=== PATIENT | male | born 1970 | race Caucasian/White ===

== ENCOUNTER 2019-07-27 06:40 | Emergency (ER) | payer BC ==
[~2019-07-27] VITALS: Ht 172.7 cm; Wt 64.9 kg
--- NOTE | 2019-07-27 06:44 | NUR ---
PT BIBSELF C/O RASH/ITCHING THROUGHOUT FACE AND BODY X 10DAYS, PT IS AAOX4, NOT IN RESPIRATORY DISTRESS, HOOKED TO MONITOR, KEPT RESTED AND COMFORTABLE, WILL CONTINUE TO MONITOR.
--- NOTE | 2019-07-27 07:08 | NUR ---
SEEN AND EXAMINED BY .
[2019-07-27] MEDS ORDERED: predniSONE 20 MG TABLET ONE (07:18)
[2019-07-27] MEDS ORDERED: IPRATROPIUM NEB FS 0.5 MG/2.5 ML AMPUL.NEB ONE (07:19)
[2019-07-27] MEDS ORDERED: ALBUTEROL FS 2.5 MG/3 ML VIAL.NEB ONE (07:19)
--- NOTE | 2019-07-27 07:20 | NUR ---
ER PHLEB AT BEDSIDE FOR BLOOD DRAW.
--- NOTE | 2019-07-27 07:20 | NUR ---
RT AT BEDSIDE FOR BREATHING TREATMENT.
[2019-07-27 07:28] LABS: BASOPHILS # (AUTO) 0.2 /CMM (0.0-0.2); BASOPHILS % (AUTO) 2.7 % (0.0-2.0); EOSINOPHILS % (AUTO) 13.1 % (0.0-6.0); HEMATOCRIT 44 % (39-51); HEMOGLOBIN 14.7 g/dL (13.5-17.5); LYMPHOCYTES # (AUTO) 1.2 /CMM (0.8-4.8); LYMPHOCYTES % (AUTO) 15.8 % (20.0-44.0); MEAN CORPUSCULAR HGB CONC 34 g/dl (31.0-36.0); MEAN CORPUSCULAR VOLUME 86 fL (80-96); MONOCYTES # (AUTO) 0.7 /CMM (0.1-1.30); MONOCYTES % (AUTO) 9.8 % (2.0-12.0); NEUTROPHILS # (AUTO) 4.4 /CMM (1.8-8.9); NEUTROPHILS % (AUTO) 58.6 % (43.0-81.0); PLATELET COUNT (AUTO) 244 /CMM (150-450); RED BLOOD CELL COUNT(AUTO) 5.06 MIL/uL (4.5-6.0); WHITE BLOOD COUNT (AUTO) 7.5 K/uL (4.3-11.0)
[2019-07-27] MEDS ORDERED: predniSONE 20 MG TABLET PO ONE (07:30)
[2019-07-27] MEDS ORDERED: ALBUTEROL FS 2.5 MG/3 ML VIAL.NEB NEB ONE (07:30)
[2019-07-27] MEDS ORDERED: IPRATROPIUM NEB FS 0.5 MG/2.5 ML AMPUL.NEB NEB ONE (07:30)
[2019-07-27 08:00] LABS: CALCIUM, SERUM 9.4 mg/dL (8.5-10.1); CREATININE 0.9 mg/dL (0.6-1.3); POTASSIUM 4.1 mmol/L (3.5-5.1)
--- NOTE | 2019-07-27 08:39 | NUR ---
Patient discharged to home in stable condition. Written and verbal after care instructions given. Patient verbalizes understanding of instruction.
[2019-07-27 08:46] VITALS: BP 122/72
[2019-07-30 21:06] LABS: *ANA ANTI-CENTROMERE B AB <0.2 AI (0.0-0.9); *ANA ANTI-DNA(DS) AB, QN 1 IU/mL (0-9); *ANA ANTI-JO-1 <0.2 AI (0.0-0.9); *ANA ANTICHROMATIN ANTIBODY <0.2 AI (0.0-0.9); *ANA RNP ANTIBODIES <0.2 AI (0.0-0.9); *ANA SJOGREN'S ANTI-SS-A <0.2 AI (0.0-0.9); *ANA SJOGREN'S ANTI-SS-B <0.2 AI (0.0-0.9); *ANAANTI-SCLERODERMA-70 AB <0.2 AI (0.0-0.9); *ANASMITH AB <0.2 AI (0.0-0.9)
== END 2019-07-27 08:50 | disposition home or self-care (01) ==
LOC: ER 06:43
DX: H61.003 Unspecified perichondritis of external ear, bilateral (principal); R21 Rash and other nonspecific skin eruption; Z91.048 Other nonmedicinal substance allergy status; Z60.2 Problems related to living alone
CPT/HCPCS: 36415; 80048; 85025; 85652; 86225; 86235 ×8; 94640; 99283; J7512

== ENCOUNTER 2020-09-30 07:57 | Inpatient (IN) | payer BC, OTHER ==
[~2020-09-30] VITALS: Ht 170.2 cm; Wt 56.7 kg
[2020-09-30] MEDS: ALBUTEROL FS 2.5 MG/0.5 ML VIAL.NEB NEB SCH ×3 (00:33→19:58)
[2020-09-30] MEDS: IPRATROPIUM NEB FS 0.5 MG/2.5 ML AMPUL.NEB NEB SCH ×3 (00:33→19:58)
[2020-09-30] MEDS: ACETYLCYSTEINE 10% SOLN 400 MG/4 ML VIAL NEB SCH ×2 (00:34→14:27)
--- NOTE | 2020-09-30 08:00 | NUR ---
pt self presents to er ambulatory w/ steady gait c/o worsening sob and hypoxia for the last 24 hours. 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 pt gowned and placed on monitor. awaiting md martinez.
--- NOTE | 2020-09-30 08:04 | NUR ---
dr guerra at bedside for eval.
--- NOTE | 2020-09-30 08:10 | NUR ---
iv line started blood drawn and sent to lab.
[2020-09-30 08:27] LABS: BASOPHILS # (AUTO) 0.1 /CMM (0.0-0.2); EOSINOPHILS % (AUTO) 10.1 % (0.0-6.0); HEMATOCRIT 49 % (39-51); HEMOGLOBIN 16.7 g/dL (13.5-17.5); LYMPHOCYTES # (AUTO) 0.9 /CMM (0.8-4.8); LYMPHOCYTES % (AUTO) 6.6 % (20.0-44.0); MEAN CORPUSCULAR HGB CONC 34 g/dl (31.0-36.0); MEAN CORPUSCULAR VOLUME 89 fL (80-96); MONOCYTES # (AUTO) 0.4 /CMM (0.1-1.30); MONOCYTES % (AUTO) 3.3 % (2.0-12.0); NEUTROPHILS # (AUTO) 10.3 /CMM (1.8-8.9); PLATELET COUNT (AUTO) 343 /CMM (150-450); RED BLOOD CELL COUNT(AUTO) 5.56 MIL/uL (4.5-6.0); WHITE BLOOD COUNT (AUTO) 13.1 K/uL (4.3-11.0)
[2020-09-30] MEDS ORDERED: IV NS 0.9% 1,000 ML BAG IV ONE (08:30)
[2020-09-30 08:34] LABS: ABG BASE EXCESS -1.5 mmol/L; ABG OXYGEN SATURATION 95.9 % (92.0-98.5); ABG PH 7.436 (7.350-7.450); ABG PO2 81.5 mmHg (75.0-100.0); AaDO2 93.6 mmHg; COHb 0.4 % (0.5-1.5); MetHb 0.4 % (0.0-1.5); O2Hb 95.1 % (94.0-97.0); SITE, ABG Right Radial; VENT MODE, BG 3L NC
--- NOTE | 2020-09-30 08:37 | NUR ---
radiology at bedside for chest xray.
[2020-09-30 08:43] LABS: CALCIUM, SERUM 9.7 mg/dL (8.5-10.1); CARBON DIOXIDE 28 mmol/L (21-32); CHLORIDE 101 mmol/L (98-107); GLUCOSE 134 mg/dL (74-106); POTASSIUM 4.1 mmol/L (3.5-5.1); SODIUM SERUM 139 mmol/L (136-145); UREA NITROGEN, BLOOD 15 mg/dL (7-18)
[2020-09-30] MEDS ORDERED: IPRA3AMP23 NEB (08:50)
[2020-09-30 08:57] LABS: ALANINE AMINOTRANSFERASE 39 U/L (12-78); ALBUMIN 3.9 g/dL (3.4-5.0); ALKALINE PHOSPHATASE 107 U/L (46-116); ASPARTATE AMINOTRANSFERASE 32 U/L (15-37); B-TYPE NATRIURETIC PEPTIDE 109 PG/ML (0-125); BILIRUBIN,DIRECT 0.2 mg/dL (0.0-0.2); BILIRUBIN,TOTAL 0.7 mg/dL (0.2-1.0); TOTAL PROTEIN, SERUM 7.9 g/dL (6.4-8.2)
--- NOTE | 2020-09-30 09:27 | NUR ---
CALLED ZAYDA [phone]. ON HIS [address] DOWN.
--- NOTE | 2020-09-30 09:47 | NUR ---
[facility] D[facility] LABORAT[facility] TECHNOLOGY TEACHER PAGED
--- NOTE | 2020-09-30 10:26 | NUR ---
pt to raediology for ct chest via [facility].
[2020-09-30] MEDS ORDERED: ALBUTEROL FS 2.5 MG/3 ML VIAL.NEB ONE ×2 (11:51→14:19)
[2020-09-30] MEDS ORDERED: IPRATROPIUM NEB FS 0.5 MG/2.5 ML AMPUL.NEB ONE ×3 (11:51→19:56)
[2020-09-30] MEDS ORDERED: ALBUTEROL FS 2.5 MG/3 ML VIAL.NEB NEB ONE (12:00)
[2020-09-30] MEDS ORDERED: IPRATROPIUM NEB FS 0.5 MG/2.5 ML AMPUL.NEB NEB ONE (12:00)
[2020-09-30] MEDS ORDERED: MAG HYDROX/AL HYDROX/SIMETH 30 ML UDC PO PRN (13:00)
[2020-09-30] MEDS ORDERED: MAGNESIUM HYDROXIDE 30 ML UDC PO PRN (13:00)
[2020-09-30] MEDS ORDERED: HYDROCODONE/APAP 5/325MG TABLET PO PRN (13:00)
[2020-09-30] MEDS ORDERED: ACETAMINOPHEN 325 MG TABLET PO PRN (13:00)
[2020-09-30] MEDS ORDERED: ONDANSETRON HCL/PF 4 MG/2 ML VIAL IVP PRN (13:00)
[2020-09-30] MEDS ORDERED: ALBUTEROL FS 2.5 MG/0.5 ML VIAL.NEB NEB PRN (13:00)
[2020-09-30] MEDS ORDERED: Z GUARD REMEDY 2 OZ OINT TP PRN (13:00)
[2020-09-30] MEDS ORDERED: IPRATROPIUM NEB FS 0.5 MG/2.5 ML AMPUL.NEB NEB PRN (13:00)
[2020-09-30] MEDS ORDERED: ZOLPIDEM TARTRATE 5 MG TABLET PO PRN (13:00)
[2020-09-30] MEDS ORDERED: ENOXAPARIN SODIUM 40 MG/0.4 ML DISP.SYRIN SQ ONE ×2 (13:52→13:59)
[2020-09-30] MEDS ORDERED: methylPREDNISolone SOD SUCC 40 MG/ML VIAL ONE ×2 (13:52→20:58)
[2020-09-30] MEDS: methylPREDNISolone SOD SUCC 40 MG/ML VIAL IV SCH ×2 (14:02→21:00)
[2020-09-30] MEDS: ENOXAPARIN SODIUM 40 MG/0.4 ML DISP.SYRIN SQ SCH (14:03)
[2020-09-30] MEDS ORDERED: AMPH10CA3 PO (17:10)
--- NOTE | 2020-09-30 19:21 | NUR ---
REC'D REPORT FROM TRIXIE OATES FOR STEPHENIE
--- NOTE | 2020-09-30 19:21 | NUR ---
report given to morris lala for abdiel.
[2020-09-30] MEDS: IV D5/ 0.9% NACL 1,000 ML IV PRN (19:43)
--- NOTE | 2020-09-30 19:44 | NUR ---
PT RESTING COMFORTABLY IN BED. VITAL SIGNS STABLE. NO ACUTE DISTRESS NOTED AT THIS TIME. CALL LIGHT WITHIN REACH. STILL ON MONITOR, WILL CONTINUE TO MONITOR
--- NOTE | 2020-09-30 19:50 | NUR ---
EDDIE FLAVORINGS COMPOUNDER AT BEDSIDE FOR EVALAUTION
[2020-09-30] MEDS ORDERED: ALBUTEROL FS 2.5 MG/0.5 ML VIAL.NEB ONE (19:56)
--- NOTE | 2020-09-30 19:58 | NUR ---
RT AT BEDSIDE FOR BREATHING TREATMENT
[2020-09-30] MEDS: VORICONAZOLE 200 MG TABLET PO SCH (21:02)
--- NOTE | 2020-09-30 21:02 | NUR ---
PT REFUSING SOLU-MEDROL. PT STATES "I ALREADY GOT A DOSE OF STEROIDS TODAY, THAT'S TOO MUCH FOR MY BODY" RISKS AND BENEFITS EXPLAINED TO PATIENT 3X, PT VERBALIZED UNDERSTANDING.
--- NOTE | 2020-10-01 00:04 | NUR ---
PT RESTING COMFORTABLY IN BED. EASILY AROUSABLE. VITAL SIGNS STABLE. NO ACUTE DISTRESS NOTED AT THIS TIME. WILL CONTINUE TO MONITOR
[2020-10-01] MEDS ORDERED: IPRATROPIUM NEB FS 0.5 MG/2.5 ML AMPUL.NEB ONE ×5 (00:27→20:02)
[2020-10-01] MEDS ORDERED: ALBUTEROL FS 2.5 MG/3 ML VIAL.NEB ONE ×2 (00:27→20:01)
[2020-10-01] MEDS: ALBUTEROL FS 2.5 MG/0.5 ML VIAL.NEB NEB SCH ×5 (03:29→20:04)
[2020-10-01] MEDS: IPRATROPIUM NEB FS 0.5 MG/2.5 ML AMPUL.NEB NEB SCH ×5 (03:29→20:04)
[2020-10-01] MEDS ORDERED: methylPREDNISolone SOD SUCC 40 MG/ML VIAL ONE ×2 (04:34→13:36)
[2020-10-01 04:54] LABS: BASOPHILS # (AUTO) 0.1 /CMM (0.0-0.2); BASOPHILS % (AUTO) 0.6 % (0.0-2.0); EOSINOPHILS % (AUTO) 1.4 % (0.0-6.0); HEMATOCRIT 43 % (39-51); HEMOGLOBIN 14.5 g/dL (13.5-17.5); LYMPHOCYTES % (AUTO) 8.2 % (20.0-44.0); MEAN CORPUSCULAR HGB CONC 34 g/dl (31.0-36.0); MEAN CORPUSCULAR VOLUME 88 fL (80-96); MONOCYTES # (AUTO) 1.1 /CMM (0.1-1.30); NEUTROPHILS # (AUTO) 9.5 /CMM (1.8-8.9); NEUTROPHILS % (AUTO) 80.8 % (43.0-81.0); PLATELET COUNT (AUTO) 277 /CMM (150-450); RED BLOOD CELL COUNT(AUTO) 4.87 MIL/uL (4.5-6.0); WHITE BLOOD COUNT (AUTO) 11.8 K/uL (4.3-11.0)
[2020-10-01] MEDS: methylPREDNISolone SOD SUCC 40 MG/ML VIAL IV SCH ×3 (05:00→21:00)
[2020-10-01 05:34] LABS: CALCIUM, SERUM 9.4 mg/dL (8.5-10.1); CREATININE 0.9 mg/dL (0.6-1.3); PHOSPHORUS 4.7 mg/dL (2.5-4.9); POTASSIUM 4.3 mmol/L (3.5-5.1)
[2020-10-01 05:36] LABS: THYROID STIMULATING HORMONE 1.264 uIU/mL (0.358-3.74)
--- NOTE | 2020-10-01 05:54 | NUR ---
PT SLEEPING COMFORTABLY IN BED, EASILY AROUSABLE. VSS. NO ACUTE DISTRESS NOTED AT THIS TIME. WILL CONTINUE TO MONITOR
[2020-10-01] MEDS ORDERED: ALBUTEROL FS 2.5 MG/0.5 ML VIAL.NEB ONE ×4 (07:14→20:01)
[2020-10-01] MEDS: ACETYLCYSTEINE 10% SOLN 400 MG/4 ML VIAL NEB SCH ×2 (07:22→14:37)
[2020-10-01] MEDS: PANTOPRAZOLE 40 MG TABLET.DR PO SCH (07:30)
--- NOTE | 2020-10-01 07:31 | NUR ---
REPORT GIVEN TO TRIXIE JAIN FOR STEPHENIE
[2020-10-01] MEDS ORDERED: PANTOPRAZOLE 40 MG TABLET.DR PO ONE (08:13)
[2020-10-01] MEDS ORDERED: ENOXAPARIN SODIUM 40 MG/0.4 ML DISP.SYRIN SQ ONE (08:13)
[2020-10-01] MEDS: VORICONAZOLE 200 MG TABLET PO SCH ×2 (08:37→21:03)
[2020-10-01] MEDS: ENOXAPARIN SODIUM 40 MG/0.4 ML DISP.SYRIN SQ SCH (09:00)
--- NOTE | 2020-10-01 09:15 | NUR ---
PT AAOX4, VSS. RR EVEN & UNLABORED. DENIES CP, SOB, DIZZINESS, N/V/D AT THIS TIME. WILL CONT TO MONITOR.
[2020-10-01] MEDS ORDERED: ALBUTEROL HALF STRENGTH 1.25 MG/3 ML VIAL.NEB NEB PRN (10:00)
--- NOTE | 2020-10-01 11:45 | NUR ---
PT ASLEEP, RR EVEN & UNLABORED. VSS. NAD NOTED AT THIS TIME. WILL CONT TO MONITOR.
--- NOTE | 2020-10-01 13:45 | NUR ---
MEDICATED PER MD ORDER, PT ANTONELLA WELL. PT SITTING UP & EATING LUNCH. NAD NOTED AT THIS TIME.
--- NOTE | 2020-10-01 14:40 | NUR ---
PT'S GETTING BREATHING TX, PT ANTONELLA WELL.
--- NOTE | 2020-10-01 16:58 | NUR ---
PT SITTING UP, RR EVEN & UNLABORED. DENIES CP, SOB, DIZZINESS, N/V, WEAKNESS AT THIS TIME. WILL CONT TO MONITOR.
--- NOTE | 2020-10-01 19:30 | NUR ---
REC'D REPORT FROM TRIXIE LOCKETT FOR STEPHENIE
[2020-10-01] MEDS: IV D5/ 0.9% NACL 1,000 ML IV PRN (20:09)
--- NOTE | 2020-10-01 20:30 | NUR ---
PT REQUESTING TO HOLD ON MAINTENANCE IV FLUIDS. PT STATES "I'VE BEEN DRINKING A LOT, I DON'T THINK I NEED THIS" RISKS AND BENEFITS EXPLAINED. PT VERBALIZED UNDERSTANDING. AWARE
--- NOTE | 2020-10-01 21:05 | NUR ---
PT REFUSING SOLU-MEDROL. RISKS AND BENEFITS EXPLAINED TO PATIENT 3X, PT VERBALIZED UNDERSTANDING.
--- NOTE | 2020-10-01 21:29 | NUR ---
EDDIE EXECUTIVE VP AT BEDSIDE FOR EVALUATION
[2020-10-02] MEDS: ALBUTEROL FS 2.5 MG/0.5 ML VIAL.NEB NEB SCH ×7 (00:26→23:19)
[2020-10-02] MEDS: ACETYLCYSTEINE 10% SOLN 400 MG/4 ML VIAL NEB SCH ×4 (00:26→23:19)
[2020-10-02] MEDS: IPRATROPIUM NEB FS 0.5 MG/2.5 ML AMPUL.NEB NEB SCH ×7 (00:26→23:19)
[2020-10-02] MEDS ORDERED: ALBUTEROL FS 2.5 MG/0.5 ML VIAL.NEB ONE ×3 (01:17→07:37)
[2020-10-02] MEDS ORDERED: IPRATROPIUM NEB FS 0.5 MG/2.5 ML AMPUL.NEB ONE ×3 (01:17→07:37)
--- NOTE | 2020-10-02 03:39 | NUR ---
PT RESTING COMFORTABLY IN BED. VITAL SIGNS STABLE. RESPIRATIONS EVEN AND UNLABORED. NO ACUTE DISTRESS NOTED AT THIS TIME. WILL CONTINUE TO MONITOR
[2020-10-02 04:10] LABS: BASOPHILS % (AUTO) 0.3 % (0.0-2.0); EOSINOPHILS % (AUTO) 0.7 % (0.0-6.0); HEMATOCRIT 45 % (39-51); LYMPHOCYTES # (AUTO) 0.8 /CMM (0.8-4.8); LYMPHOCYTES % (AUTO) 9.6 % (20.0-44.0); MEAN CORPUSCULAR HGB CONC 34 g/dl (31.0-36.0); MEAN CORPUSCULAR VOLUME 89 fL (80-96); MONOCYTES # (AUTO) 0.3 /CMM (0.1-1.30); MONOCYTES % (AUTO) 3.6 % (2.0-12.0); NEUTROPHILS # (AUTO) 7.3 /CMM (1.8-8.9); NEUTROPHILS % (AUTO) 85.8 % (43.0-81.0); PLATELET COUNT (AUTO) 329 /CMM (150-450); RED BLOOD CELL COUNT(AUTO) 4.98 MIL/uL (4.5-6.0); WHITE BLOOD COUNT (AUTO) 8.5 K/uL (4.3-11.0)
[2020-10-02 04:26] LABS: CALCIUM, SERUM 9.4 mg/dL (8.5-10.1); MAGNESIUM 2.2 mg/dL (1.8-2.4); PHOSPHORUS 4.2 mg/dL (2.5-4.9)
[2020-10-02] MEDS: methylPREDNISolone SOD SUCC 40 MG/ML VIAL IV SCH ×3 (05:00→21:02)
--- NOTE | 2020-10-02 05:10 | NUR ---
PT REFUSING SOLUMEDROL. RISKS AND BENEFITS EXPLAINED 3X, PT VERBALIZED UNDERSTANDING. AWARE
--- NOTE | 2020-10-02 07:21 | NUR ---
REPORT GIVEN TO TRIXIE JAIN FOR STEPHENIE
--- NOTE | 2020-10-02 08:08 | NUR ---
PATIENT A/OX4, RESTING AT THIS TIME.
[2020-10-02] MEDS ORDERED: PANTOPRAZOLE 40 MG TABLET.DR PO ONE (08:15)
[2020-10-02] MEDS: ENOXAPARIN SODIUM 40 MG/0.4 ML DISP.SYRIN SQ SCH (08:27)
[2020-10-02] MEDS: VORICONAZOLE 200 MG TABLET PO SCH ×2 (08:27→21:03)
[2020-10-02] MEDS: PANTOPRAZOLE 40 MG TABLET.DR PO SCH (08:27)
--- NOTE | 2020-10-02 09:28 | NUR ---
REPORT GIVEN TO ESTHELA MARCUM FOR STEPHENIE. PATIENT TRANSFERRED TO ROOM 304-1 VIA ACLS PROTOCOL. IN STABLE CONDITION. ON 3LPM VIA NC WITH SPO2 OF 98%.
--- NOTE | 2020-10-02 09:30 | NUR ---
RN NOTES BEDSIDE ENDORSEMENT DONE. PATIENT TRANSFERRED TO ROOM 304, ACCOMPANIED BY 2 ER NURSES.
[2020-10-02 09:49] VITALS: BP 104/69
[2020-10-02 16:00] VITALS: BP 96/59
--- NOTE | 2020-10-02 19:10 | NUR ---
RN NOTES ADMITTED THIS PATIENT TODAY FROM ER W/ CC OF SOB FROM HOME, DIAGNOSIS OF FIBROTIC LUNGS PER DR. PRIEST. PATIENT IS AWAKE AND VERBALLY RESPONSIVE; A/O X4, ABLE TO MAKE NEEDS KNOWN. BREATHING EVEN AND UNLABORED, ON O2 AT 2-3LPM VIA NC, NO RESPIRATORY DISTRESS. IV LINE INSERTED TODAY AT RIGHT WRIST #22, INTACT AND PATENT. PATIENT REQUESTED NOT TO HAVE IVF HE STATES THAT HE MOVES A LOT AND DRINKS FLUIDS. PATIENT IS AMBULATORY W/ STEADY GAIT, NO SKIN ISSUES NOTED. SAFETY PRECS IN PLACE: BED LOCKED AND ON LOWEST POSITION, SR UP X2, CALL LIGHT USE DEMONSTRATED TO PATIENT FOR STAFF ASSISTANCE. ENDORSED TO PARKING CASHIER RN FOR STEPHENIE.
--- NOTE | 2020-10-02 19:48 | NUR ---
PRODUCT MERCHANDISER OPENING NOTES PATIENT A/O X4; ABLE TO MAKE NEEDS KNOWN. ON O2 2LPML; TOLERATING WELL, DRY COUGHING NOTED. ON EXTERNAL CARDIAC MONITORING; READS SR AND HR AT 90'S. IV ON RIGHT WRIST #22; PATENT AND INTACT. SAFETY MEASURES IN PLACE: BED LOCKED IN LOWEST POSITION; SIDE RAILS UP X2; CALL LIGHT WITHIN EASY REACH. WILL CONTINUE TO MONITOR.
--- NOTE | 2020-10-02 21:30 | NUR ---
MUSIC LEADER NOTES - FLONASE PATIENT C/O DRY NOSE FROM OXYGEN AND REQUESTED SOMETHING TO PREVENT DRYNESS. NOTIFIED VANE CARRILLO AND ORDERED FLONASE NASAL SPRAY. ORDERS CARRIED OUT
[2020-10-03] MEDS: ALBUTEROL FS 2.5 MG/0.5 ML VIAL.NEB NEB SCH ×6 (03:13→23:42)
[2020-10-03] MEDS: IPRATROPIUM NEB FS 0.5 MG/2.5 ML AMPUL.NEB NEB SCH ×6 (03:13→23:42)
[2020-10-03 04:00] VITALS: BP 97/56
[2020-10-03] MEDS: methylPREDNISolone SOD SUCC 40 MG/ML VIAL IV SCH ×4 (05:00→21:40)
--- NOTE | 2020-10-03 06:33 | NUR ---
FISHER TROT LINE CLOSING NOTES PATIENT A/O X4; ABLE TO MAKE NEEDS KNOWN. ON O2 2LPM VIA NASAL CANNULA; TOLERATING WELL, COUGHING AND MUCUS NOTED. ON EXTERNAL CARDIAC MONITORING; READS SR AND HR AT 99. IV ON RIGHT WRIST #22; PATENT AND INTACT. SAFETY MEASURES IN PLACE: BED LOCKED IN LOWEST POSITION; SIDE RAILS UP X2; CALL LIGHT WITHIN EASY REACH. WILL CONTINUE TO MONITOR.
--- NOTE | 2020-10-03 07:05 | NUR ---
EDGE DYER OPENING NOTES RECEIVED PATIENT SITTING ON THE EDGE OF THE BED. A/O X4. NC ON 2 LPM. TELE READING SR 99. IV ACCESS ON R WRIST #20 G. SAFETY MEASURES MAINTAINED. BED IN LOWEST POSITION, BRAKES LOCKED. SIDE RAILS UP X2. CALL LIGHT WITHIN REACH. WILL CONTINUE PLAN OF CARE.
[2020-10-03] MEDS: PANTOPRAZOLE 40 MG TABLET.DR PO SCH (07:10)
[2020-10-03] MEDS: ACETYLCYSTEINE 10% SOLN 400 MG/4 ML VIAL NEB SCH ×3 (07:19→23:42)
[2020-10-03 08:00] VITALS: BP 113/74
[2020-10-03] MEDS: VORICONAZOLE 200 MG TABLET PO SCH ×2 (09:39→21:00)
[2020-10-03] MEDS: FLUTICASONE PROPIONATE 16 GM BOTTLE NS SCH (09:39)
[2020-10-03] MEDS: ENOXAPARIN SODIUM 40 MG/0.4 ML DISP.SYRIN SQ SCH (09:40)
--- NOTE | 2020-10-03 10:29 | NUR ---
RN NOTES D/C TELEMETRY
[2020-10-03 11:52] LABS: BASOPHILS % (AUTO) 0.1 % (0.0-2.0); EOSINOPHILS % (AUTO) 0.1 % (0.0-6.0); HEMATOCRIT 45 % (39-51); LYMPHOCYTES # (AUTO) 0.5 /CMM (0.8-4.8); LYMPHOCYTES % (AUTO) 4.9 % (20.0-44.0); MEAN CORPUSCULAR HGB CONC 34 g/dl (31.0-36.0); MEAN CORPUSCULAR VOLUME 89 fL (80-96); MONOCYTES # (AUTO) 0.8 /CMM (0.1-1.30); MONOCYTES % (AUTO) 7.7 % (2.0-12.0); NEUTROPHILS % (AUTO) 87.2 % (43.0-81.0); PLATELET COUNT (AUTO) 336 /CMM (150-450); RED BLOOD CELL COUNT(AUTO) 5.07 MIL/uL (4.5-6.0); WHITE BLOOD COUNT (AUTO) 10.3 K/uL (4.3-11.0)
[2020-10-03 12:02] LABS: CALCIUM, SERUM 9.5 mg/dL (8.5-10.1); CREATININE 0.9 mg/dL (0.6-1.3); MAGNESIUM 2.4 mg/dL (1.8-2.4)
[2020-10-03 16:00] VITALS: BP 132/74
--- NOTE | 2020-10-03 18:27 | NUR ---
MS RN CLOSING NOTES PATIENT IN BED. A/O X4. NC ON 2 LPM. NO S/S OF RESPIRATORY DISTRESS. IV ACCESS ON R WRIST #20 G, INTACT AND PATENT, FLUSHED REGULARLY. ABLE TO MAKE NEEDS KNOWN. ROUTINE MEDS WERE GIVEN ORDERED. SAFETY MEASURES MAINTAINED. BED IN LOWEST POSITION, BRAKES LOCKED. SIDE RAILS UP X2. CALL LIGHT WITHIN REACH. WILL ENDORSE TO GEM EXPERT FOR STEPHENIE.
--- NOTE | 2020-10-03 19:41 | NUR ---
MS RN OPENING NOTES PATIENT A/O X4; ABLE TO MAKE NEEDS KNOWN. ON O2 2LPM via NASAL CANNULA; TOLERATING WELL, COUGHING NOTED. IV ON RIGHT WRIST #22; PATENT AND INTACT. DENIES PAIN AT THIS TIME. SAFETY MEASURES IN PLACE: BED LOCKED IN LOWEST POSITION; SIDE RAILS UP X2; CALL LIGHT WITHIN EASY REACH. WILL CONTINUE TO MONITOR.
[2020-10-03 20:00] VITALS: BP 104/78
--- NOTE | 2020-10-03 21:28 | NUR ---
MS RN NOTES [facility] CHARGE NURSE AND RN ACCESS NURSE AWARE. VFEND DOSE NOT GIVEN; WILL FOLLOW UP WITH PHARMACY.
--- NOTE | 2020-10-03 21:52 | NUR ---
MS RN NOTES PATIENT STATED THAT DR. PRIEST STATED IT IS OKAY FOR SOLUMEDROL 40MG Q8H TO BE REDUCED TO 20MG Q8HR. WILL FOLLOW UP WITH DR. PRIEST. CHARGE NURSE AWARE.
[2020-10-04] MEDS: IPRATROPIUM NEB FS 0.5 MG/2.5 ML AMPUL.NEB NEB SCH ×6 (03:30→23:18)
[2020-10-04] MEDS: ALBUTEROL FS 2.5 MG/0.5 ML VIAL.NEB NEB SCH ×6 (03:30→23:18)
[2020-10-04] MEDS: methylPREDNISolone SOD SUCC 40 MG/ML VIAL IV SCH ×4 (05:00→21:19)
[2020-10-04] MEDS: PANTOPRAZOLE 40 MG TABLET.DR PO SCH ×2 (07:30→08:58)
--- NOTE | 2020-10-04 07:30 | NUR ---
MS/RN OPENING NOTE Received patient awake in bed, A&O x 4. Denies any pain/discomfort at this time. Breathing even and non-labored on 2L oxygen via NC, no SOB noted. No cardiac distress noted. IV access noted on R wrist #22, patent and intact, and flushing well. Bed locked to its lowest position, side rails x 2 up, call light in hand. Will continue with current medical management.
--- NOTE | 2020-10-04 07:55 | NUR ---
PUBLICITY CONSULTANT CLOSING NOTES PATIENT A/O X4; ABLE TO MAKE NEEDS KNOWN. ON O2 2LPM VIA NASAL CANNULA; TOLERATING WELL, COUGHING AND MUCUS NOTED. IV ON RIGHT WRIST #22; PATENT AND INTACT. SAFETY MEASURES IN PLACE: BED LOCKED IN LOWEST POSITION; SIDE RAILS UP X2; CALL LIGHT WITHIN EASY REACH. WILL CONTINUE TO MONITOR.
[2020-10-04 08:27] VITALS: BP 119/73
[2020-10-04] MEDS: FLUTICASONE PROPIONATE 16 GM BOTTLE NS SCH (08:58)
[2020-10-04] MEDS: VORICONAZOLE 200 MG TABLET PO SCH ×2 (08:58→21:20)
[2020-10-04] MEDS: ACETYLCYSTEINE 10% SOLN 400 MG/4 ML VIAL NEB SCH ×3 (08:59→23:18)
[2020-10-04] MEDS: ENOXAPARIN SODIUM 40 MG/0.4 ML DISP.SYRIN SQ SCH (09:00)
[2020-10-04 16:04] VITALS: BP 118/70
--- NOTE | 2020-10-04 18:49 | NUR ---
MS RN OPENING NOTES PATIENT A/O X4; ABLE TO MAKE NEEDS KNOWN. ON O2 2LPM via NASAL CANNULA; TOLERATING WELL, COUGHING NOTED. IV ON LEFT WRIST #22; PATENT AND INTACT. DENIES PAIN AT THIS TIME. SAFETY MEASURES IN PLACE: BED LOCKED IN LOWEST POSITION; SIDE RAILS UP X2; CALL LIGHT WITHIN EASY REACH. WILL CONTINUE TO MONITOR.
--- NOTE | 2020-10-04 19:16 | NUR ---
MS/RN CLOSING NOTE Patient awake in bed, A&O x 4. All needs met and attended to. Denies any pain/discomfort at this time. Breathing even and non-labored on 2L oxygen via NC, no SOB noted. No cardiac distress noted. IV access noted on R wrist #22, patent and intact, and flushing well. Fall precautions maintained. Will endorse to tank house operator nurse.
[2020-10-04 20:00] VITALS: BP 115/71
[2020-10-05] MEDS: IPRATROPIUM NEB FS 0.5 MG/2.5 ML AMPUL.NEB NEB SCH ×4 (03:30→16:03)
[2020-10-05] MEDS: ALBUTEROL FS 2.5 MG/0.5 ML VIAL.NEB NEB SCH ×4 (03:30→16:03)
[2020-10-05 06:04] LABS: BASOPHILS % (AUTO) 0.3 % (0.0-2.0); EOSINOPHILS % (AUTO) 0.2 % (0.0-6.0); HEMATOCRIT 40 % (39-51); HEMOGLOBIN 13.6 g/dL (13.5-17.5); LYMPHOCYTES # (AUTO) 0.9 /CMM (0.8-4.8); LYMPHOCYTES % (AUTO) 8.6 % (20.0-44.0); MEAN CORPUSCULAR HGB CONC 34 g/dl (31.0-36.0); MEAN CORPUSCULAR VOLUME 88 fL (80-96); MONOCYTES # (AUTO) 0.7 /CMM (0.1-1.30); MONOCYTES % (AUTO) 7.1 % (2.0-12.0); NEUTROPHILS # (AUTO) 8.3 /CMM (1.8-8.9); NEUTROPHILS % (AUTO) 83.8 % (43.0-81.0); PLATELET COUNT (AUTO) 273 /CMM (150-450); RED BLOOD CELL COUNT(AUTO) 4.54 MIL/uL (4.5-6.0); WHITE BLOOD COUNT (AUTO) 9.9 K/uL (4.3-11.0)
[2020-10-05 06:45] LABS: CALCIUM, SERUM 9.1 mg/dL (8.5-10.1); CREATININE 0.8 mg/dL (0.6-1.3); MAGNESIUM 2.3 mg/dL (1.8-2.4); PHOSPHORUS 4.3 mg/dL (2.5-4.9); POTASSIUM 4.3 mmol/L (3.5-5.1)
[2020-10-05] MEDS: ACETYLCYSTEINE 10% SOLN 400 MG/4 ML VIAL NEB SCH ×2 (07:25→16:03)
[2020-10-05] MEDS: PANTOPRAZOLE 40 MG TABLET.DR PO SCH ×3 (07:30→07:49)
--- NOTE | 2020-10-05 07:34 | NUR ---
MS/RN OPENING NOTES RECEIVED PATIENT ON BED, AWAKE ALERT AND ORIENTED X4. PATIENT IS ON 2L OXYGEN VIA NASAL CANNULA. PATIENT IN NO APPARENT RESPIRATORY DISTRESS NOTED. NO COMPLAINED OF PAIN AT THIS TIME. WILL CONTINUE TO MONITOR.
[2020-10-05 08:00] VITALS: BP 123/70
[2020-10-05] MEDS: VORICONAZOLE 200 MG TABLET PO SCH (08:22)
[2020-10-05] MEDS: methylPREDNISolone SOD SUCC 40 MG/ML VIAL IV SCH (08:22)
[2020-10-05] MEDS: FLUTICASONE PROPIONATE 16 GM BOTTLE NS SCH (08:25)
--- NOTE | 2020-10-05 08:25 | NUR ---
JAVA FRONT END WEB DEVELOPER CLOSING NOTES PATIENT A/O X4; ABLE TO MAKE NEEDS KNOWN. ON O2 2LPM VIA NASAL CANNULA; TOLERATING WELL, COUGHING AND MUCUS NOTED. IV ON LEFT WRIST #22; PATENT AND INTACT. SAFETY MEASURES IN PLACE: BED LOCKED IN LOWEST POSITION; SIDE RAILS UP X2; CALL LIGHT WITHIN EASY REACH. ENDORSED STEPHENIE TO ONCOMING RN
[2020-10-05] MEDS: ENOXAPARIN SODIUM 40 MG/0.4 ML DISP.SYRIN SQ SCH (08:26)
--- NOTE | 2020-10-05 13:21 | NUR ---
MS/RN NOTES DR. PRIEST ORDER FUNGAL CULTURE AND SMEAR SOURCE SPUTUM. NOTED AND CARRIED OUT.
[2020-10-05] MEDS ORDERED: VORI200T PO (15:04)
[2020-10-05] MEDS ORDERED: ACET1OOV6 HHN (15:04)
[2020-10-05] MEDS ORDERED: PRED20TA PO (15:04)
[2020-10-05 16:00] VITALS: BP 102/71
--- NOTE | 2020-10-05 17:57 | NUR ---
MS/RN NOTES PATIENT IS ALERT AND ORIENTED X4. PATIENT IN NO APPARENT RESPIRATORY DISTRESS NOTED. NO COMPLAINED OF PAIN. SEEN AND EXAMINED BY MD WITH ORDERS MADE AND CARRIED OUT. ALL DUE MEDICATIONS WAS GIVEN. PATIENT WAS GIVEN EDUCATIONAL MATERIALS AND PATIENT VERBALIZED UNDERSTANDING. PATIENT LEFT IN MEDICALLY STABLE CONDITION VIA PRIVATE CAR.
== END 2020-10-05 17:20 | disposition home or self-care (01) | DRG 871 ==
LOC: ER 08:02 → TRANSITION 10:06 → TELE 10-02 08:58 → MED 10-03 08:43
PROVIDERS: ADMIT Student in an Organized Health Care Education/Training Program; ATTEND Student in an Organized Health Care Education/Training Program
DX: A41.9 Sepsis, unspecified organism (principal); J96.21 Acute and chronic respiratory failure with hypoxia; B44.81 Allergic bronchopulmonary aspergillosis; F41.9 Anxiety disorder, unspecified; Z20.822 Contact with and (suspected) exposure to COVID-19; Z79.51 Long term (current) use of inhaled steroids; Z91.011 Allergy to milk products; Z99.81 Dependence on supplemental oxygen; Z87.09 Personal history of other diseases of the respiratory system; Z82.5 Family history of asthma and other chronic lower respiratory diseases; J45.909 Unspecified asthma, uncomplicated; J98.09 Other diseases of bronchus, not elsewhere classified
CPT/HCPCS: 36415; 36600; 71045-TC; 71046; 71250-TC; 80048-TC; 80061-TC; 80076-TC; 83605-TC; 83735-TC; 83880; 84100-TC; 84443-TC; 84484-TC; 85025-TC; 87040-TC; 87070-TC; 87081-TC; 94799-TC; A4217; G0378; J1650; J2920; J7030; J7042